=== PATIENT | male | born 2000 | race Caucasian/White ===

== ENCOUNTER → 2019-03-13 | Outpatient (CLI) | payer BC ==
--- NOTE | 2019-03-13 15:49 | Diagnostic Imaging Report ---
Right ankle, 3 views. History: Right ankle pain laterally post fall. Findings: There is minimal lateral soft tissue swelling. Bone mineralization is normal. There is no evidence of fracture or dislocation. There are no lytic or sclerotic lesions. The joint spaces are within normal limits. IMPRESSION: Minimal lateral soft tissue swelling without acute osseous abnormality. Signed by: Ulises Agosto on 03/13/2019 3:46 PM
== END ==
LOC: RAD 15:18
PROVIDERS: ATTEND Family Medicine
DX: M25.571 Pain in right ankle and joints of right foot (principal)